=== PATIENT | female | born 1985 | race African-American/Black ===

== ENCOUNTER 2016-06-12 12:09 | Emergency (ER) ==
[2016-06-12] MEDS ORDERED: NS 1,000 ML IV ONE (12:33)
--- NOTE | 2016-06-12 12:43 | PROVIDER DOCUMENTATION ---
HPI-Female /OB/Breast - General Chief Complaint: Breast Pain Stated Complaint: CP Time Seen by Provider: 06/12/16 12:19 Allergies/Adverse Reactions: Patient Allergies Allergy/AdvReac Type Severity Reaction Status Date / Time No Known Allergies Allergy Verified 06/12/16 12:42 Home Medications: Home Medication List Medication Instructions Recorded Confirmed Last Taken Type Albuterol Sulfate [Albuterol 1 - 2 puff IH 3-4XDAY PRN PRN #1 08/27/13 06/12/16 11/23/15 06:30 Rx Sulfate Hfa] hfa.[email or web address] Tramadol [Ultram] 2 tab PO Q6H PRN PRN 11/22/15 06/12/16 02/26/16 History Hydrocodone/Acetaminophen [Keystone 1 each PO Q4-6H PRN PRN #12 tablet 02/27/1605/30 Unknown Rx 5-325 Tablet] Ibuprofen 800 mg PO Q4-6H PRN PRN 02/27/16 06/12/16 02/27/16 History Amoxicillin/Potassium Clav 1 each PO BID #20 tablet 06/12/16 Unknown Rx [Augmentin 875-125 Tablet] - History of Present Illness-Female /OB Nature of Presenting Problem: A 31 y/o F with PMH of right partial mastectomy and history of mastitis presente with non specific right breast pain since few days noted sharp no specific radiation, denies fever, noted occasional palpitation when lying down, takes PRN pain medicatios which she was not taking lately as per LMP was in late april. Denies any other symptoms Review of Systems - Adult - REVIEW OF SYSTEMS - ADULT Constitutional: reports: no symptoms reported Eyes: reports: no symptoms reported Ears, Nose, Mouth & Throat: reports: no symptoms reported Cardiovascular: reports: no symptoms reported Respiratory: reports: no symptoms reported Gastrointestinal: reports: no symptoms reported Genitourinary: reports: no symptoms reported Musculoskeletal: reports: see HPI Integumentary: reports: no symptoms reported Neurological: reports: no symptoms reported Psychiatric: reports: no symptoms reported Endocrine: reports: no symptoms reported Hematologic/Lymphatic: reports: no symptoms reported Allergic/Immunologic: reports: no symptoms reported All Other Systems: Reviewed and Negative Past History - Adult - PAST MEDICAL HISTORY-ADULT Review of Records: reports: Old Records Reviewed, Nursing Assessment Review, Medications Reviewed, Social history reviewed & non-contributory. Major Childhood Illnesses: reports: denies history Cardiovascular: reports: denies history Respiratory: reports: denies history Gastrointestinal: reports: denies history Obstetrical/Gynecological: reports: denies history Genitourinary: reports: denies history Musculoskeletal: reports: other (RA) Neurological: reports: denies history Endocrine/Immune: reports: denies history Other Conditions: reports: denies history - PRIOR SURGERIES/PROCEDURES Surgical/Procedure History: reports: breast (right mastectomy) - PRIOR HOSPITALIZATIONS Prior Hospitalizations: reports: none - IMMUNIZATION STATUS Childhood Immunizations: UTD Flu Vaccine: See Nurse Assessment - FAMILY HISTORY Family History: reviewed, not pertinent Physical Exam-General - PHYSICAL EXAM-ADULT Initial Vital Signs Reviewed: Yes - CONSTITUTIONAL General Appearance: appears well, alert, no apparent distress - EYES Eyes: PERRL/EOMI, pink conjunctivae - HEAD, EARS, NOSE, MOUTH & THROAT HENMT: normocephalic/atraumatic - NECK Neck: non-tender - RESPIRATORY Respiratory: chest non-tender, lungs clear, normal breath sounds - CARDIOVASCULAR Cardiovascular: normal peripheral pulses, regular rate, rhythm - CHEST (BREASTS) Chest/Breast: other (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: right upper breast tenderness on upper quadrant at sit of surgical scar, no warmth reddness eryhtema or swelling noted , no LN enalrgement) - GASTROINTESTINAL (ABDOMEN) Abdominal Exam: normal bowel sounds, non tender, soft - MUSCULOSKELETAL Extremity: normal range of motion, non-tender, normal gait - SKIN Integumentary: normal color - NEUROLOGIC Neurologic: jewel bearing polisher II-XII nml as tested, grossly normal - PSYCHIATRIC Psych/Mental Status: normal mood/affect Progress - PLAN OF CARE/RESULTS Progress/Plan/Lab Results: Laboratory Tests 06/12/16 06/12/16 12:46 12:46 WBC 9.08 RBC 3.74 L Hgb 12.3 Hct 37.4 MCV 100.0 H MCH 32.9 H MCHC 32.9 L RDW Std Deviation 14.9 H Plt Count 246 MPV 9.9 Neut % (Auto) 67.3 Lymph % (Auto) 24.7 [place] % (Auto) 7.4 Eos % (Auto) 0.4 Baso % (Auto) 0.2 Neut # (Auto) 6.11 Lymph # (Auto) 2.24 [place] # (Auto) 0.67 H Eos # (Auto) 0.04 Baso # (Auto) 0.02 Sodium 140 Potassium 4.4 Chloride 103 Carbon Dioxide 23 L Anion Gap 14 BUN 12 Creatinine 0.9 Estimated GFR/1.73 m2 > 60 BUN/Creatinine Ratio 13 Glucose 94 Calculated Osmolality 279 Calcium 8.9 Total Bilirubin 0.17 L AST 19 ALT 17 Alkaline Phosphatase 90 Total Protein 6.8 Albumin 4.1 Globulin 2.7 Albumin/Globulin Ratio 1.5 Orders Category Date Time Status ED: Urine Bedside ORDERED Care 06/12/16 12:37 Active CHEST-2 VIEWS [RAD] Stat Exams 06/12/16 12:33 Taken CBC WITH ELECTRONIC DIFF [HEME] Stat Lab 06/12/16 12:46 Completed COMPREHENSIVE METABOLIC PANEL [CHEM] Stat Lab 06/12/16 12:46 Completed 0.9% Sodium Chloride Inj [Ns] 1,000 ml Med 06/12/16 12:33 Discontinued IV 999 mls/hr EKG [EKG] Stat Ther 06/12/16 12:16 Draft Vital Signs Temp Pulse Resp BP Pulse Ox 06/12/16 12:20 98.2 F 80 20 131/71 100 No Known Allergies Allergy (Verified 06/12/16 12:42) Albuterol Sulfate [Albuterol Sulfate Hfa] 1 - 2 puff IH 3-4XDAY PRN PRN #1 hfa.aer.ad 08/27/13 Tramadol [Ultram] 2 tab PO Q6H PRN PRN 11/22/15 Hydrocodone/Acetaminophen [Keystone 5-325 Tablet] 1 each PO Q4-6H PRN PRN #12 tablet 02/27/16 Ibuprofen 800 mg PO Q4-6H PRN PRN 02/27/16 Laboratory 06/12/16 06/12/16 12:46 12:46 WBC 9.08 RBC 3.74 L Hgb 12.3 Hct 37.4 MCV 100.0 H MCH 32.9 H MCHC 32.9 L RDW Std Deviation 14.9 H Plt Count 246 MPV 9.9 Neut % (Auto) 67.3 Lymph % (Auto) 24.7 [place] % (Auto) 7.4 Eos % (Auto) 0.4 Baso % (Auto) 0.2 Neut # (Auto) 6.11 Lymph # (Auto) 2.24 [place] # (Auto) 0.67 H Eos # (Auto) 0.04 Baso # (Auto) 0.02 Sodium 140 Potassium 4.4 Chloride 103 Carbon Dioxide 23 L Anion Gap 14 BUN 12 Creatinine 0.9 Estimated GFR/1.73 m2 > 60 BUN/Creatinine Ratio 13 Glucose 94 Calculated Osmolality 279 Calcium 8.9 Total Bilirubin 0.17 L AST 19 ALT 17 Alkaline Phosphatase 90 Total Protein 6.8 Albumin 4.1 Globulin 2.7 Albumin/Globulin Ratio 1.5 - EKG 1 Time of EKG reading by physician:: 13:52 EKG Interpretation (*Must complete 3 of following elements*): Normal [place]: normal QRS: normal [place] Interval: normal ST Wave: normal - XRAY 1 XRAY Study: Chest Impression: Normal, See EMR Report Departure - Departure Time of Disposition Order: 13:56 DIAGNOSIS: Breast pain Mastitis chronic Qualifiers: Laterality: right Qualified Code(s): N60.11 - Diffuse cystic mastopathy of right breast Disposition: HOME 01 Certified Medical Emergency: Emergent Condition: Good Prescriptions: Amoxicillin/Potassium Clav [Augmentin 875-125 Tablet] 1 each PO BID #20 tablet Referrals: Curt Hughes MD [Primary Care Provider] - Forms: Return to School/Parent Work Instructions: Mastitis, [id number] - Critical Care Note Comments: a 31 y/o F was evaluated for right brast pain, labs normal including WBC, physical exam no signs of acute infection, EKG and CXR normal, anxiety component , will give augmentin prophylactically and needs to follow up with PCP for incision pain, rest warmth and OTC pain medication
[2016-06-12 12:56] LABS: MANUAL DIFF NEEDED? NO
[2016-06-12 13:00] LABS: BASO% 0.2 % (0.0-0.8); EOS# 0.04 X1000 (0.0-0.7); EOS% 0.4 % (0.0-10.0); HEMATOCRIT 37.4 % (37.0-47.0); HEMOGLOBIN 12.3 g/dL (12.0-16.0); LYMPH# 2.24 X1000 (1.2-3.4); LYMPH% 24.7 % (20.5-51.1); MCH 32.9 PG (27-31); MCHC 32.9 g/dL (33-37); MONO# 0.67 X1000 (0.11-0.59); MONO% 7.4 % (1.7-9.3); MPV 9.9 FL (7.4-10.4); NEUT% 67.3 % (42.2-75.2); PLT 246 X1000 (130-400); RBC 3.74 XMIL (4.2-5.4)
[2016-06-12 13:17] LABS: AGAP 14; ALBUMIN 4.1 g/dL (3.5-5.0); ALKALINE PHOSPHATASE 90 U/L (32-104); BUN 12 mg/dL (8-22); CALCIUM 8.9 mg/dL (8.8-10.2); CHLORIDE 103 mmol/L (98-107); COSMO 279; GOT 19 U/L (10-30); GPT 17 U/L (10-36); POTASSIUM 4.4 mmol/L (3.5-5.1); SODIUM 140 mmol/L (136-145); TCO2 23 mmol/L (25-35); TOTAL BILIRUBIN 0.17 mg/dL (0.20-1.00); TOTAL PROTEIN 6.8 g/dL (6.3-8.3)
--- NOTE | 2016-06-12 13:34 | EKG Report ---
Test Performed on : 06/12/2016 12:17:03 PM Test Reason : CP Blood Pressure : / mmHG Vent. Rate : 075 BPM Atrial Rate : 075 BPM P-R Int : 142 ms QRS Dur : 084 ms QT Int : 364 ms P-R-T Axes : 015 015 019 degrees QTc Int : 406 ms Normal sinus rhythm. Normal ECG No previous ECGs available Unconfirmed Result
--- NOTE | 2016-06-12 14:14 | Diag Imaging Result Document ---
PROCEDURE NAME: CHEST-2 VIEWS - 06/12/2016 TWO VIEWS OF THE CHEST: FINDINGS: There is no evidence of acute cardiac or pulmonary disease. Compared to 08/27/2013, there has been no significant change in the appearance of the chest. IMPRESSION: No evidence of acute disease.
[2016-06-12 14:18] VITALS: BP 117/73
== END 2016-06-12 14:18 | disposition home or self-care (01) ==
LOC: ED 12:09
DX: N60.11 Diffuse cystic mastopathy of right breast (principal); N64.4 Mastodynia; M06.9 Rheumatoid arthritis, unspecified; Z90.11 Acquired absence of right breast and nipple
CPT/HCPCS: 71020; 80053; 85025; 93005; J7030